=== PATIENT | male | born 1990 | race African-American/Black ===

== ENCOUNTER 2017-06-25 21:37 | Emergency (ER) | payer OTHER ==
[2017-06-25 22:02] VITALS: BP 120/88; PULSE 70; TEMP 98.5; BMI 20.9
--- NOTE | 2017-06-25 22:13 | PDOC ---
History of Present Illness - History of Present Illness Initial Comments: 06/25/17 22:43 The patient is a 26 year old male with no significant past medical history who presents for evaluation of lower back pain. The patient reports onset of left sided lower back pain 2 days ago after waking up. He reports feeling a tightness in his lower back that is worse with movement and with standing for long periods of time. He reports continued pain despite mild improvements with tylenol prompting his presentation to the ED today. He denies fevers, chills, SOB, chest pain, abdominal pain, or changes with urination or bowel movements. <Dennis Conteh - Last Filed: 06/25/17 23:54> <Jeanette Capps - Last Filed: 06/26/17 03:52> - General Chief Complaint: Back Pain Stated Complaint: BACK PAIN Time Seen by Provider: 06/25/17 21:59 Past History - Past Medical History Other medical history: denies - Immunization History Immunization Up to Date: Yes - Suicide/Smoking/Psychosocial Hx Smoking Status: Yes Smoking History: Never smoked Number of Cigarettes Smoked Daily: 2 Information on smoking cessation initiated: No 'Breaking Loose' booklet given: 10/11/13 Hx Alcohol Use: Yes (occasion) Drug/Substance Use Hx: No Substance Use Type: None, Marijuana Hx Substance Use Treatment: No <Dennis Conteh - Last Filed: 06/25/17 23:54> <Jeanette Capps - Last Filed: 06/26/17 03:52> - Past Medical History Allergies/Adverse Reactions: Allergies Allergy/AdvReac Type Severity Reaction Status Date / Time No Known Allergies Allergy Verified 06/25/17 21:52 Home Medications: Ambulatory Orders Ibuprofen [Motrin -] 400 mg PO QID 12/16/14 Oxycodone HCl/Acetaminophen [Percocet 5/325 -] 1 - 2 tab PO Q6H PRN #12 tab 08/20 Ibuprofen [Motrin -] 600 mg PO TID #21 tablet 06/25/17 Methocarbamol [Robaxin -] 500 mg PO BID #14 tablet 06/25/17 Review of Systems - Review of Systems Comments:: 06/25/17 22:47 Constitutional: No fevers, chills, fatigue, malaise HEENT: No Rhinorrhea, nasal congestion, Cardiovascular: No chest pain, syncope, palpitations, lightheadedness Respiratory: No Cough, SOB, Hemoptysis, Gastrointestinal: No Abdominal pain, Nausea, Vomiting, Constipation, Diarrhea, Melena Genitourinary: No Dysuria, Frequency, Urgency, Hesitancy, Hematuria, Flank pain Musculoskeletal: Left sided lower back pain. No Myalgia, arthralgia Skin: No rashes, itching, bruising, pallor Neurologic: No Headache, Dizziness, Numbness, Weakness, or Tingling <Dennis Conteh - Last Filed: 06/25/17 23:54> *Physical Exam - Vital Signs Last Vital Signs Temp Pulse Resp BP Pulse Ox 98.5 F 70 18 120/88 99 06/25/17 21:50 06/25/17 21:50 06/25/17 21:50 06/25/17 21:50 06/25/17 21:50 - Physical Exam Comments: 06/25/17 22:48 General Appearance: Nourished. No Apparent Distress HEENT: EOMI, LIZZETH. No Pharyngeal Erythema, Tonsillar Exudate, Tonsillar Erythema Neck: No Cervical Lymphadenopathy Respiratory/Chest: Lungs Clear, Normal Breath Sounds. No Crackles, Rales, Rhonchi, Wheezing Cardiovascular: Regular Rhythm, Regular Rate. No Murmur, Gallops, Rubs Gastrointestinal/Abdominal: Normal Bowel Sounds, Soft. No Guarding, Rebound, Tenderness Musculoskeletal: No CVA Tenderness Extremity: Normal Capillary Refill Integumentary: Normal Color, Dry, Warm Neurologic: Fully Oriented, Alert, Normal Mood/Affect, Normal Response, negative straight leg raise test. <Dennis Conteh - Last Filed: 06/25/17 23:54> - Vital Signs Last Vital Signs Temp Pulse Resp BP Pulse Ox 98.5 F 70 18 120/88 99 06/25/17 21:50 06/25/17 21:50 06/25/17 21:50 06/25/17 21:50 06/25/17 21:50 <Jeanette Capps - Last Filed: 06/26/17 03:52> ED Treatment Course - ADDITIONAL ORDERS Additional order review: Laboratory Results 06/25/17 22:52 Urine Color Yellow Urine Appearance Clear Urine pH 8.0 D Urine Protein Negative Urine Glucose (UA) Negative Urine Ketones Negative Urine Blood Negative Urine Nitrite Negative Urine Bilirubin Negative Urine Urobilinogen Negative - Medications Given in the ED: ED Medications Discontinued Medications Generic Name Dose Route Start Last Admin Trade Name Bharat PRN Reason Stop Dose Admin Ibuprofen 600 mg 06/25/17 23:21 06/25/17 23:45 Motrin - PO 06/25/17 23:22 600 mg ONCE ONE Administration Methocarbamol 1,000 mg 06/25/17 22:36 06/25/17 22:45 Robaxin - PO 06/25/17 22:37 1,000 mg ONCE ONE Administration <Jeanette Capps - Last Filed: 06/26/17 03:52> Medical Decision Making - Medical Decision Making 06/25/17 22:49 The patient is a 26 year old male with no significant past medical history who presents for evaluation of lower back pain. Differential includes but is not limited to: Nephrolethiasis, Uti, musculoskeletal. Given the patient's normal physical exam with a history of tightness and lower back pain worse with movement, it is likely his symptoms are due to musculoskeletal pain or muscle spasm. We will send a UA to evaluate for nephrolethiasis and treat his pain with robaxin. We will continue to monitor and reassess. 06/25/17 23:54 Patient reports significant improvement in his symptoms and is requesting discharge home. UA is negative. We are comfortable discharging the patient home at this time with PCP follow up. The patient voiced understanding and is agreeable with the plan. <Dennis Conteh - Last Filed: 06/25/17 23:54> - Medical Decision Making 06/26/17 03:51 Pt comes with back pain. On going x 2 days paraspinal on the left side. Pt thinks he slept funny. Pt's muscle spasm is improving with motrin and robaxin. Home with the same. Work note given Pt will follow with PMD. <Jeanette Capps - Last Filed: 06/26/17 03:52> *DC/Admit/Observation/Transfer - Discharge Dispostion Admit: No <Dennis Conteh - Last Filed: 06/25/17 23:54> <Jeanette Capps - Last Filed: 06/26/17 03:52> Diagnosis at time of Disposition: Back pain Qualifiers: Back pain location: low back pain Chronicity: acute Back pain laterality: left Sciatica presence: without sciatica Qualified Code(s): M54.5 - Low back pain - Discharge Dispostion Disposition: HOME Condition at time of disposition: Improved - Prescriptions Prescriptions: Ibuprofen [Motrin -] 600 mg PO TID #21 tablet Methocarbamol [Robaxin -] 500 mg PO BID #14 tablet - Patient Instructions Printed Discharge Instructions: DI for Low Back Pain Additional Instructions: Please return to the ER if you experience concerning or worsening symptoms including numbness or weakness in your extremities. Please call to follow up with your primary care provider to discuss your ER visit. - Post Discharge Activity Forms/Work/School Notes: Back to Work
[2017-06-25] MEDS ORDERED: METHOCARBAMOL 500 MG TABLET PO ONE (22:36)
[2017-06-25] MEDS ORDERED: KETOROLAC TROMETHAMINE 60 MG/2 ML VIAL IM ONE (22:37)
--- NOTE | 2017-06-25 22:38 | PDOC ---
Attending Attestation - Resident Resident Name: Dennis Conteh - HPI HPI: 06/25/17 22:37 Pt comes with parasternal back pain and back spasm. - Physicial Exam PE: 06/25/17 22:37 Agree with resident exam - Medical Decision Making 06/25/17 22:37 NSAID and muscle relaxants
[2017-06-25] MEDS ORDERED: METHOCARBAMOL 500 MG TABLET ONE (22:47)
[2017-06-25 23:01] LABS: URINE APPEARANCE CLEAR; URINE BILIRUBIN NEGATIVE (NEGATIVE); URINE BLOOD NEGATIVE (NEGATIVE); URINE COLOR YELLOW; URINE GLUCOSE (UA) NEGATIVE (NEGATIVE); URINE KETONE NEGATIVE (NEGATIVE); URINE NITRITE NEGATIVE (NEGATIVE); URINE PROTEIN NEGATIVE (NEGATIVE); URINE UROBILINOGEN NEGATIVE mg/dL (0.2-1.0)
[2017-06-25] MEDS ORDERED: IBUPROFEN 600 MG TABLET (FP) PO ONE ×2 (23:21→23:44)
[2017-06-26 09:59] LABS: URINE LEUK ESTERASE Negative (NEGATIVE)
== END 2017-06-25 23:59 | disposition home or self-care (01) ==
LOC: JER 21:37
DX: M54.5 Low back pain (principal); X50.1XXA Overexertion from prolonged static or awkward postures, initial encounter; Y93.84 Activity, sleeping; Y92.032 Bedroom in apartment as the place of occurrence of the external cause
CPT/HCPCS: 81003; 99282-25

== ENCOUNTER 2019-02-21 19:44 | Emergency (ER) | payer SELFPAY ==
[2019-02-21] MEDS ORDERED: ACETAMINOPHEN 500 MG TABLET (FP) PO ONE (19:54)
[2019-02-21] MEDS ORDERED: ACETAMINOPHEN 500 MG TABLET (FP) ONE ×2 (19:55→19:56)
[2019-02-21 20:03] VITALS: BP 139/87; PULSE 86; BMI 20.3
[2019-02-21] MEDS ORDERED: PENICILLIN G BENZATHINE 2,400,000 UNIT/4 ML PFS IM ONE (20:10)
[2019-02-21] MEDS ORDERED: PENICILLIN G BENZATHINE 1,200,000 UNIT/2 ML PFS IM ONE ×2 (20:12)
--- NOTE | 2019-02-21 20:26 | PDOC ---
Documentation entered by Natalie Ibarra SCRIBE, acting as scribe for Alona Zaman MD. Alona Zaman MD: This documentation has been prepared by the scribe, Natalie Ibarra SCRIBE, under my direction and personally reviewed by me in its entirety. I confirm that the documentation accurately reflects all work , treatment, procedures, and medical decision making performed by me. History of Present Illness - General Chief Complaint: Pain Stated Complaint: SORE THROAT, BODY PAIN History Source: Patient Exam Limitations: No Limitations - History of Present Illness Initial Comments: 02/21/19 20:16 The patient is a 28-year-old male, with no past medical history, who presents to the ED with 2 days of fever, sore throat, and body aches. Patient reports taking Nyquil Severe with minimal relief of his symptoms. Temperature in the ED noted to be 101.1. The patient has had strep throat in the past, but states that the symptoms he is experiencing now are different. The patient denies any nausea, vomiting, diarrhea, or abdominal pain. Denies any chest pain, palpitations or shortness of breath. Denies any dizziness, weakness, or changes in strength or sensation. PAST MEDICAL HISTORY: no significant history PAST SURGICAL HISTORY: no significant history FAMILY HISTORY: no pertinent history HISTORY: Pt lives with family and is employed. MEDICATIONS: reviewed ALLERGIES: As per nursing notes General: (+)Fever. No weakness, no weight loss HEENT: (+)Sore throat. No change in vision. No ear pain CardioVascular: No chest pain or shortness of breath Respiratory:No cough, or wheezing. Gastrointestinal: no nausea, vomiting, diarrhea or constipation, No rectal bleeding Genitourinary: No dysuria, hematuria, or frequency Musculoskeletal: (+)Diffuse body aches. No joint pain or swelling Neurologic: No headache, vertigo, dizziness or loss of consciousness Psychiatric: nor depression Skin: No rashes or easy bruising Endocrine: no increased thirst or abnormal weight change Allergic: no skin or latex allergy All other systems reviewed and normal General: Well-nourished well-developed individual, no acute distress HEENT: Throat: (+)Tonsillar enlargement bilaterally with exudates. Neck: (+)Submandibular lymphadenopathy. Supple, no meningeal signs. Eyes::Pupils equal reactive and round, extraocular motion intact Chest: Nontender to palpation Cardiac: S1-S2 normal, regular rate and rhythm, no murmurs rubs or gallops Respiratory: Lungs clear to auscultation bilateral Abdomen: Soft, nondistended, normal bowel sounds, nontender to palpation diffusely Extremities: Warm, dry, no cyanosis, clubbing, or edema Skin: No rashes Neuro: Alert and oriented x3, nonfocal exam, grossly intact. Psych: Normal mood and affect Assessment and plan: This is a 28-year-old male who has history of strep pharyngitis in the past 2 comes in complaining of a sore throat 2 days with fever or body aches. Patient meets criteria for strep pharyngitis with an exudative pharyngitis enlarged tonsils and submandibular lymphadenopathy. Patient will be treated with Bicillin L-A and discharged home. Patient told to take Tylenol or Motrin alternating every 3 hours for the fever or body aches and the discomfort 02/21/19 20:24 Past History - Past Medical History Allergies/Adverse Reactions: Allergies Allergy/AdvReac Type Severity Reaction Status Date / Time No Known Allergies Allergy Verified 02/21/19 19:46 Home Medications: Ambulatory Orders NK [No Known Home Medication] 02/21/19 - Immunization History Immunization Up to Date: Yes - Suicide/Smoking/Psychosocial Hx Smoking Status: Yes Smoking History: Current some day smoker Number of Cigarettes Smoked Daily: 2 'Breaking Loose' booklet given: 10/11/13 Hx Alcohol Use: Yes (occasion) Drug/Substance Use Hx: No Substance Use Type: None Hx Substance Use Treatment: No *Physical Exam - Vital Signs Last Vital Signs Temp Pulse Resp BP Pulse Ox 101.1 F H 86 16 139/87 100 02/21/19 19:52 02/21/19 19:52 02/21/19 19:52 02/21/19 19:52 02/21/19 19:52 ED Treatment Course - Medications Given in the ED: ED Medications Discontinued Medications Generic Name Dose Route Start Last Admin Trade Name Freq PRN Reason Stop Dose Admin Acetaminophen 1,000 mg 02/21/19 19:54 02/21/19 19:59 Tylenol - PO 02/21/19 19:55 1,000 mg ONCE ONE Administration Penicillin G Benzathine 1,200,000 unit 02/21/19 20:12 02/21/19 20:16 Bicillin L-A - IM 02/21/19 20:13 1,200,000 unit ONCE ONE Administration *DC/Admit/Observation/Transfer Diagnosis at time of Disposition: Exudative pharyngitis - Discharge Dispostion Disposition: HOME Condition at time of disposition: Stable Decision to Admit order: No - Referrals - Patient Instructions Additional Instructions: Alternate acetaminophen with ibuprofen every 3-4 hours as needed for fever, headache, body aches. You were treated with a long-acting antibiotic here in the emergency room for strep. If you are not improved within 24-48 hours follow-up with your primary care doctor as the other possibility could be mono. Return to the emergency department immediately with ANY new, persistent or worsening symptoms. Continue any medications as previously prescribed by your physician. You should follow up with your primary doctor as soon as possible regarding today's emergency department visit. . Please make sure your doctor reviews the results of your emergency evaluation. Thank you for coming to the Emergency Department today for your care. It was a pleasure to see you today. Please note that your evaluation is INCOMPLETE until you follow-up with your doctor. - Post Discharge Activity
[2019-02-21 20:29] VITALS: TEMP 100.3
== END 2019-02-21 20:33 | disposition home or self-care (01) ==
LOC: FER 19:44
DX: F17.210 Nicotine dependence, cigarettes, uncomplicated (principal)
CPT/HCPCS: 99281-25